=== PATIENT | male | born 1980 | race Caucasian/White ===

== ENCOUNTER 2018-08-24 05:37 | Inpatient (IN) | payer OTHER, BC ==
[2018-08-24] MEDS ORDERED: POLYMYXIN/BACITRACIN 1L IRRIG (06:45)
[2018-08-24] MEDS ORDERED: ROCURONIUM 50 MG INJ ×2 (06:54→07:00)
[2018-08-24] MEDS ORDERED: SUCCINYLCHOLINE CHLORIDE 100 MG/5 ML SYG IV (06:54)
[2018-08-24] MEDS ORDERED: PROPOFOL 20 ML (06:54)
[2018-08-24] MEDS ORDERED: MIDAZOLAM 1 MG/ML 2 ML INJ (06:56)
[2018-08-24] MEDS ORDERED: LIDOCAINE 1% (MDV) 20 ML INJ (06:56)
[2018-08-24] MEDS ORDERED: BISACODYL 10 MG SUPP PR (07:00)
[2018-08-24] MEDS ORDERED: NALOXONE (0.4 MG/ML) INJ IV (07:00)
[2018-08-24] MEDS ORDERED: HYDROmorphONE 0.5 MG/0.5 ML SYG IV (07:00)
[2018-08-24] MEDS ORDERED: DIPHENHYDRAMINE 25 MG CAP PO (07:00)
[2018-08-24] MEDS ORDERED: OXYCODONE/ACETAMINOPHEN (10/325) TAB PO (07:00)
[2018-08-24] MEDS ORDERED: SUGAMMADEX SODIUM 200 MG/2 ML VIAL IV (07:00)
[2018-08-24] MEDS ORDERED: AL HYDROX/MG HYDROX/SIMETH 30 ML CUP PO (07:00)
[2018-08-24] MEDS ORDERED: DIPHENHYDRAMINE 50 MG INJ IV (07:00)
[2018-08-24] MEDS ORDERED: DESFLURANE 15 MIN (07:00)
[2018-08-24] MEDS ORDERED: ACETAMINOPHEN 325 MG TAB PO (07:00)
[2018-08-24] MEDS ORDERED: GELATIN SIZE 100 SPONGE (07:04)
[2018-08-24] MEDS ORDERED: DEXAMETHASONE 4 MG/ML 5 ML INJ (07:05)
[2018-08-24] MEDS ORDERED: ONDANSETRON 4 MG INJ ×2 (07:05→11:04)
[2018-08-24] MEDS ORDERED: CEFAZOLIN 1 GM INJ (07:07)
[2018-08-24] MEDS ORDERED: HYDROmorphONE 1 MG/5 ML IV SYRINGE IV ×2 (07:30→11:33)
[2018-08-24] MEDS ORDERED: LABETALOL HCL 20MG INJ IV (07:30)
[2018-08-24] MEDS ORDERED: ALBUTEROL 0.083% (NEB) 2.5 MG/3 ML AMP (07:31)
[2018-08-24] MEDS: BUPIVACAINE 0.5%/EPI (SDV) 30 ML INJ (07:52)
[2018-08-24] MEDS: HEPARIN 1000 UNITS/ML 10 ML INJ (07:54)
[2018-08-24] MEDS: CEFAZOLIN 1 GM INJ (07:54)
[2018-08-24] MEDS: SURGIFOAM POWDER 1 GM KIT ×2 (07:54→09:08)
[2018-08-24] MEDS ORDERED: HEPARIN 1000 UNITS/ML 10 ML INJ (08:07)
[2018-08-24] MEDS: CA CHLORIDE 10% 10 ML SYRINGE (09:05)
[2018-08-24] MEDS: THROMBIN (BOVINE) 5,000 UNIT VIAL TP (09:08)
[2018-08-24] MEDS ORDERED: LABETALOL HCL 20MG INJ (09:23)
[2018-08-24] MEDS: FENTAnyl 50 MCG/ML VIAL (10:33)
[2018-08-24] MEDS: BUPIVACAINE 0.25% (MPF) 30 ML INJ (10:33)
[2018-08-24] MEDS ORDERED: MEPERIDINE 25 MG INJ (11:37)
[2018-08-24] MEDS: HYDROmorphONE 1 MG/5 ML IV SYRINGE IV ×4 (11:37→12:30)
[2018-08-24] MEDS: HYDROmorphONE 0.2 MG/ML PCA IV ×3 (11:47→20:47)
[2018-08-24] MEDS: MEPERIDINE 25 MG INJ IV (11:48)
[2018-08-24] MEDS: ONDANSETRON 4 MG INJ IV ×3 (11:48→21:18)
[2018-08-24] MEDS: GABAPENTIN 400 MG CAP PO ×3 (13:00→21:13)
[2018-08-24] MEDS: CEFAZOLIN 1 GM/50 ML (PMX) 50 ML IVPB ×2 (13:47→21:14)
[2018-08-24] MEDS: 1/2 NS + KCL 20 MEQ 1,000 ML IV ×2 (13:47→20:00)
[2018-08-24] MEDS: DOCUSATE SODIUM 100 MG CAP PO ×2 (20:49→21:00)
[2018-08-25] MEDS: HYDROmorphONE 0.2 MG/ML PCA IV ×5 (00:10→21:09)
[2018-08-25] MEDS: 1/2 NS + KCL 20 MEQ 1,000 ML IV ×4 (01:16→21:11)
[2018-08-25] MEDS: CEFAZOLIN 1 GM/50 ML (PMX) 50 ML IVPB (05:24)
[2018-08-25 05:36] LABS: ADD MAN DIFF? NO
[2018-08-25 05:39] LABS: BASOPHILS % 0.2 % (0.0-2.0); HEMATOCRIT 38.7 % (42.0-52.0); HEMOGLOBIN 13.1 g/dl (14.0-18.0); LYMPHOCYTES # 2.4 10^3/ul (0.8-2.9); LYMPHOCYTES % 14.5 % (15.0-51.0); MEAN CORPUSCULAR HEMOGLOBIN 28.9 pg (29.0-33.0); MEAN CORPUSCULAR HGB CONC 33.9 g/dl (32.0-37.0); MEAN CORPUSCULAR VOLUME 85.4 fl (82.0-101.0); MEAN PLATELET VOLUME 10.4 fl (7.4-10.4); MONOCYTE # 1.2 10^3/ul (0.3-0.9); MONOCYTES % 7.4 % (0.0-11.0); NEUTROPHIL # 12.8 10^3/ul (1.6-7.5); NEUTROPHILS % 77.2 % (39.0-77.0); PLATELET COUNT 313 10^3/UL (140-415); RED BLOOD COUNT 4.53 10^6/ul (4.70-6.10); RED CELL DISTRIBUTION WIDTH 12.8 % (11.5-14.5)
[2018-08-25 05:39] LABS: WHITE BLOOD COUNT 16.6 10^3/ul (4.8-10.8)
[2018-08-25 06:33] LABS: ANION GAP 6 (5-13); BLOOD UREA NITROGEN 11 mg/dl (7-20); CALCIUM 8.8 mg/dl (8.4-10.2); CARBON DIOXIDE 29 mmol/L (21-31); CHLORIDE 105 mmol/L (97-110); CREATININE 0.67 mg/dl (0.61-1.24); Estimated GFR > 60 mL/min (>60); GLUCOSE 108 mg/dl (70-220); MAGNESIUM 2.4 mg/dl (1.7-2.5); POTASSIUM 4.1 mmol/L (3.5-5.1); SODIUM 140 mmol/L (135-144)
[2018-08-25] MEDS: GABAPENTIN 400 MG CAP PO ×4 (09:19→21:00)
[2018-08-25] MEDS: DOCUSATE SODIUM 100 MG CAP PO ×2 (09:19→20:41)
[2018-08-25] MEDS: ONDANSETRON 4 MG INJ IV (09:31)
[2018-08-25] MEDS: CYCLOBENZAPRINE 10 MG TAB PO (17:23)
[2018-08-26] MEDS: CEPASTAT LOZENGE MT (01:41)
[2018-08-26] MEDS: CYCLOBENZAPRINE 10 MG TAB PO ×4 (01:41→22:49)
[2018-08-26 05:30] LABS: ADD MAN DIFF? NO
[2018-08-26 05:38] LABS: WHITE BLOOD COUNT 14.6 10^3/ul (4.8-10.8)
[2018-08-26 05:38] LABS: BASOPHIL # 0.1 10^3/ul (0.0-0.1); BASOPHILS % 0.7 % (0.0-2.0); EOSINOPHILS # 0.1 10^3/ul (0.0-0.5); EOSINOPHILS % 0.3 % (0.0-7.0); HEMATOCRIT 45.3 % (42.0-52.0); HEMOGLOBIN 14.8 g/dl (14.0-18.0); LYMPHOCYTES # 3.9 10^3/ul (0.8-2.9); MEAN CORPUSCULAR HEMOGLOBIN 27.9 pg (29.0-33.0); MEAN CORPUSCULAR HGB CONC 32.7 g/dl (32.0-37.0); MEAN CORPUSCULAR VOLUME 85.3 fl (82.0-101.0); MEAN PLATELET VOLUME 10.4 fl (7.4-10.4); MONOCYTE # 1.1 10^3/ul (0.3-0.9); MONOCYTES % 7.8 % (0.0-11.0); NEUTROPHIL # 9.3 10^3/ul (1.6-7.5); NEUTROPHILS % 63.7 % (39.0-77.0); PLATELET COUNT 339 10^3/UL (140-415); RED BLOOD COUNT 5.31 10^6/ul (4.70-6.10); RED CELL DISTRIBUTION WIDTH 12.9 % (11.5-14.5)
[2018-08-26 06:08] LABS: ANION GAP 9 (5-13); BLOOD UREA NITROGEN 8 mg/dl (7-20); CALCIUM 9.3 mg/dl (8.4-10.2); CARBON DIOXIDE 32 mmol/L (21-31); CHLORIDE 102 mmol/L (97-110); CREATININE 0.75 mg/dl (0.61-1.24); Estimated GFR > 60 mL/min (>60); GLUCOSE 95 mg/dl (70-220); MAGNESIUM 2.3 mg/dl (1.7-2.5); POTASSIUM 4.1 mmol/L (3.5-5.1); SODIUM 143 mmol/L (135-144)
[2018-08-26] MEDS: 1/2 NS + KCL 20 MEQ 1,000 ML IV ×2 (06:25→22:00)
[2018-08-26] MEDS: KETOROLAC 30 MG INJ IV (08:59)
[2018-08-26] MEDS: GABAPENTIN 400 MG CAP PO ×3 (08:59→20:46)
[2018-08-26] MEDS: DOCUSATE SODIUM 100 MG CAP PO ×2 (09:00→20:42)
[2018-08-26] MEDS: OXYCODONE/ACETAMINOPHEN (10/325) TAB PO ×4 (10:54→22:50)
[2018-08-26] MEDS: ONDANSETRON 4 MG INJ IV (11:11)
[2018-08-26] MEDS: LOSARTAN 50 MG TAB PO (17:05)
[2018-08-26] MEDS: GABAPENTIN 300 MG CAP PO (20:43)
[2018-08-26] MEDS ORDERED: GABAPENTIN 400 MG CAP PO (21:00)
[2018-08-27] MEDS: OXYCODONE/ACETAMINOPHEN (10/325) TAB PO ×4 (03:11→15:38)
[2018-08-27 05:51] LABS: ADD MAN DIFF? NO
[2018-08-27 05:56] LABS: BASOPHIL # 0.1 10^3/ul (0.0-0.1); BASOPHILS % 0.8 % (0.0-2.0); EOSINOPHILS # 0.3 10^3/ul (0.0-0.5); EOSINOPHILS % 2.1 % (0.0-7.0); HEMATOCRIT 47.7 % (42.0-52.0); HEMOGLOBIN 16.2 g/dl (14.0-18.0); LYMPHOCYTES # 4.1 10^3/ul (0.8-2.9); LYMPHOCYTES % 28.8 % (15.0-51.0); MEAN CORPUSCULAR HEMOGLOBIN 28.4 pg (29.0-33.0); MEAN CORPUSCULAR VOLUME 83.7 fl (82.0-101.0); MEAN PLATELET VOLUME 10.1 fl (7.4-10.4); MONOCYTE # 1.2 10^3/ul (0.3-0.9); MONOCYTES % 8.1 % (0.0-11.0); NEUTROPHIL # 8.5 10^3/ul (1.6-7.5); NEUTROPHILS % 59.8 % (39.0-77.0); PLATELET COUNT 356 10^3/UL (140-415); RED CELL DISTRIBUTION WIDTH 12.9 % (11.5-14.5)
[2018-08-27 05:56] LABS: WHITE BLOOD COUNT 14.3 10^3/ul (4.8-10.8)
[2018-08-27 07:08] LABS: ANION GAP 10 (5-13); BLOOD UREA NITROGEN 9 mg/dl (7-20); CALCIUM 9.7 mg/dl (8.4-10.2); CARBON DIOXIDE 31 mmol/L (21-31); CHLORIDE 100 mmol/L (97-110); CREATININE 0.93 mg/dl (0.61-1.24); Estimated GFR > 60 mL/min (>60); GLUCOSE 97 mg/dl (70-220); MAGNESIUM 2.5 mg/dl (1.7-2.5); POTASSIUM 4.3 mmol/L (3.5-5.1); SODIUM 141 mmol/L (135-144)
[2018-08-27] MEDS: 1/2 NS + KCL 20 MEQ 1,000 ML IV (08:00)
[2018-08-27] MEDS: CYCLOBENZAPRINE 10 MG TAB PO (08:34)
[2018-08-27] MEDS: DOCUSATE SODIUM 100 MG CAP PO (08:34)
[2018-08-27] MEDS: GABAPENTIN 300 MG CAP PO ×2 (08:34→13:21)
[2018-08-27] MEDS: LOSARTAN 50 MG TAB PO ×2 (08:36→16:36)
[2018-08-28] MEDS ORDERED: LOSARTAN 50 MG TAB PO (09:00)
== END 2018-08-27 18:55 | disposition home or self-care (01) | DRG 520 ==
LOC: REC 05:37 → MS1 12:53
PROVIDERS: Specialist
PROC: 0SB20ZZ Excision of Lumbar Vertebral Disc, Open Approach (ICD-10-PCS; principal; 2018-08-24 07:00)
PROC: 01NB0ZZ Release Lumbar Nerve, Open Approach (ICD-10-PCS; 2018-08-24 07:00)
PROC: 01NR0ZZ Release Sacral Nerve, Open Approach (ICD-10-PCS; 2018-08-24 07:00)
PROC: 4A11X4G Monitoring of Peripheral Nervous Electrical Activity, Intraoperative, External Approach (ICD-10-PCS; 2018-08-24 07:00)
DX: M51.16 Intervertebral disc disorders with radiculopathy, lumbar region (principal); M48.061 Spinal stenosis, lumbar region without neurogenic claudication; Z68.39 Body mass index [BMI] 39.0-39.9, adult; M48.07 Spinal stenosis, lumbosacral region; E66.01 Morbid (severe) obesity due to excess calories; R53.1 Weakness; T41.295A Adverse effect of other general anesthetics, initial encounter
CPT/HCPCS: 72100; 80048; 83735; 85025; 86999; 87086; 88304; 97110; 97116; 97162; 97530